=== PATIENT | male | born 1955 | race Caucasian/White ===

== ENCOUNTER 2021-11-01 16:09 | Outpatient (REF) | payer OTHER, SELFPAY ==
[2021-11-01 17:54] LABS: PSA,Total (Free>4and<10) 16.14 ng/mL (0.00-4.00)
== END 2021-11-01 16:10 | disposition home or self-care (01) ==
LOC: HO.LAB 16:09
PROVIDERS: Visit Provider Urology
DX: N40.1 Benign prostatic hyperplasia with lower urinary tract symptoms (principal); N13.8 Other obstructive and reflux uropathy; R97.20 Elevated prostate specific antigen [PSA]; E11.69 Type 2 diabetes mellitus with other specified complication; N52.1 Erectile dysfunction due to diseases classified elsewhere; Z12.5 Encounter for screening for malignant neoplasm of prostate
CPT/HCPCS: 36415; 84153; 99202

== ENCOUNTER 2022-03-18 09:48 | Outpatient (REF) | payer OTHER, SELFPAY ==
[2022-03-18 10:51] LABS: Blood Urea Nitrogen 14 mg/dL (9-16); Estimated Glomerular Filt Rate > 60
[2022-03-18 11:16] LABS: PSA,Total (Free>4and<10) 14.78 ng/mL (0.00-4.00)
== END 2022-03-18 09:49 | disposition home or self-care (01) ==
LOC: HO.LAB 09:48
PROVIDERS: Visit Provider Urology
DX: Z12.5 Encounter for screening for malignant neoplasm of prostate (principal); R39.15 Urgency of urination; R97.20 Elevated prostate specific antigen [PSA]; N13.8 Other obstructive and reflux uropathy; N40.1 Benign prostatic hyperplasia with lower urinary tract symptoms
CPT/HCPCS: 36415; 82565; 84153; 84520

== ENCOUNTER → 2022-03-21 13:25 | Outpatient (BNVA) | payer OTHER, SELFPAY | PROVIDERS: PCP Internal Medicine; Visit Provider Urology | DX: R97.20 Elevated prostate specific antigen [PSA] (principal); E11.69 Type 2 diabetes mellitus with other specified complication; N52.1 Erectile dysfunction due to diseases classified elsewhere; N40.1 Benign prostatic hyperplasia with lower urinary tract symptoms | CPT/HCPCS: 99212 ==

== ENCOUNTER 2022-09-20 09:54 | Outpatient (REF) | payer OTHER, SELFPAY ==
[2022-09-20 11:25] LABS: Prostate Specific Antigen 12.15 ng/mL (<0.05-4.0)
== END 2022-09-20 09:55 | disposition home or self-care (01) ==
LOC: HO.10HDL 09:54
PROVIDERS: Visit Provider Urology
DX: Z12.5 Encounter for screening for malignant neoplasm of prostate (principal); R97.20 Elevated prostate specific antigen [PSA]
CPT/HCPCS: 36415; 84153

== ENCOUNTER → 2022-09-27 13:45 | Outpatient (BNVA) | payer MEDICARE, MEDICAID, SELFPAY | PROVIDERS: PCP Internal Medicine; Visit Provider Urology | DX: N40.1 Benign prostatic hyperplasia with lower urinary tract symptoms (principal); N13.8 Other obstructive and reflux uropathy; R97.20 Elevated prostate specific antigen [PSA]; E11.69 Type 2 diabetes mellitus with other specified complication; N52.1 Erectile dysfunction due to diseases classified elsewhere | CPT/HCPCS: 51798; 99212 ==

== ENCOUNTER 2023-01-09 11:18 | Outpatient (AMB) | payer MEDICARE, MEDICAID, SELFPAY ==
--- NOTE | 2023-01-09 11:42 | A.OFFVIS_ITS ---
Intake Intake Visit Reasons: H&P (targeted bx to be scheduled) Intake Note: Patient is present for Follow Up H&P Target bx Urology Med: Tadalafil Antibiotic Allergy: None Blood Thinner: Aspirin Pharmacy: [facility] Allergies No Known Allergies Allergy (Verified 09/27/22 13:50) Medication List - Last Reconciled 01/09/23 by Brown Obando MD aspirin 81 mg PO DAILY atorvastatin 10 mg PO DAILY blood sugar diagnostic (FreeStyle Lite Strips) As directed escitalopram oxalate 10 mg PO DAILY gabapentin 0 mg PO lisinopril 5 mg PO DAILY metformin 1,000 mg PO BID metformin ER 500 mg PO QAM tadalafil 5 mg PO DAILY 90 days triamcinolone acetonide 2 sprays intranasal DAILY HPI HPI Comments History of Present Illness Details Bryan is a pleasant Citizen [place]-speaking male. He is a patient of Dr. Mayorga. He is seen for following urologic conditions - elevated PSA - erectile dysfunction - lower urinary tract symptoms Citizen [place] translation provided by qualified medical staffing coordinator Reports misdiagnosis at prior urologist - question of prostate cancer Persistently high PSA LEI 3+ prostate Discussed targeted biopsy He is traveling for 2 months Erectile dysfunction Longstanding - Background diabetes controlled on single agent Combination premature ejaculation Continue daily low-dose Cialis with good results Refill prescription Lower urinary tract symptoms Follow-up evaluation postvoid dribbling with incomplete emptying PSA 2020 9, 11/18 16, 03/21 15, 09/19 12 Prior negative biopsy 04/16, negative biopsy mid 2020 in [place] Lei 3+ prostate No family history prostate cancer Imaging - 02/18 MRI prostate central peripheral zone left side 1 cm lesion PI-RADS 4 Poor response to finasteride and previously Avodart - had pain PFSH Medical History Diabetes mellitus, type II GERD (gastroesophageal reflux disease) HTN (hypertension) Review of Systems Const Denies chills and Denies fever(s) Card Reports no additional complaints and Denies syncope Resp Denies cough GI Denies abdominal pain and Denies heartburn Reports as per HPI and Denies change in libido Neuro Denies syncope Psych Denies change in libido Endo Denies change in libido Physical Exam Const General: cooperative, healthy appearing, comfortable and no acute distress Orientation/consciousness: patient oriented x3 HEENT Face and sinus: Yes normal facial exam Mouth: moist mucous membranes Neck Neck: Yes normal visual inspection, Yes full ROM and Yes trachea midline Chest Chest palpation & inspection: normal inspection of the chest Resp Effort & Inspection: normal respiratory effort, able to speak in complete sentences and no respiratory distress GI Inspection: Yes normal to inspection Back/Spine/Pelvis Cervical Spine: normal cervical lordosis Thoracic/Lumbar Spine: thoracic and lumbar spine normal to inspection Skin General skin exam: no rashes or lesions noted Neuro General: patient oriented x3, gait normal, tone normal and moves all extremities Extrem General: Yes normal to inspection and Yes capillary refill normal Assessment & Plan Assessment & Plan (1) BPH loc w urin obs/LUTS: Code(s): N40.1 - Benign prostatic hyperplasia with lower urinary tract symptoms (2) Elevated PSA: Code(s): R97.20 - Elevated prostate specific antigen [PSA] (3) Erectile dysfunction associated with type 2 diabetes mellitus: Code(s): E11.69 - Type 2 diabetes mellitus with other specified complication; N52.1 - Erectile dysfunction due to diseases classified elsewhere Plan Risks, benefits and alternatives to therapy were discussed. These include but are not limited to infection, bleeding, damage to local organs and tissues, need for further interventions. Anesthetic risks regarding cardiac arrhythmia, blood clots, and potential mortality were discussed. The patient understands the typical recovery time and the outpatient nature of the procedure. After consideration of these risks the patient gives full informed consent and they wish to move ahead with the procedure. Prostate Fusion Biopsy Medications: Refilled tadalafil Take daily 5 mg PO DAILY 90 days 90 tabs 1RF sexual activity E11.69 - Type 2 diabetes mellitus with other specified complication, N52.1 - Erectile dysfunction due to diseases classified elsewhere Patient Instructions: Imaging studies, laboratory and physical exam results were discussed and reviewed in detail. No major barriers to patient understanding were identified. An opportunity to ask questions regarding the treatment plan was provided. All questions were answered. The patient expressed understanding and agreement with the above treatment plan. The patient is aware they should contact our office by phone for worsening of their current condition or the appearance of new urologic symptoms. Compliance is encouraged with any medications and followup testing that is ordered. It is a privilege to participate in the urologic care of your patient. If you have any questions or concerns regarding treatment for the above conditions, or other urologic issues, please do not hesitate to contact me. The office te zach contact is [phone]. This note is constructed using voice recognition software. While every effort has been made to ensure accuracy office secretary errors may have been included. Yours sincerely, Dr Brown Obando MD, [facility] - Urology Providers of Expert, Compassionate Care for the Genitourinary System Coding Level of Care Code Est Pt Level 4 (11402) Diagnoses BPH loc w urin obs/LUTS N40.1 Elevated PSA R97.20 Erectile dysfunction associated with type 2 diabetes mellitus E11.69; N52.1
== END 2023-01-09 12:07 | disposition home or self-care (01) ==
PROVIDERS: PCP Internal Medicine; Visit Provider Urology
DX: N40.1 Benign prostatic hyperplasia with lower urinary tract symptoms (principal); R97.20 Elevated prostate specific antigen [PSA]; E11.69 Type 2 diabetes mellitus with other specified complication; N52.1 Erectile dysfunction due to diseases classified elsewhere
CPT/HCPCS: 99214

== ENCOUNTER → 2023-01-09 11:18 | Outpatient (BNVA) | payer MEDICARE, MEDICAID, SELFPAY | PROVIDERS: PCP Internal Medicine; Visit Provider Urology | DX: R97.20 Elevated prostate specific antigen [PSA] (principal); N40.1 Benign prostatic hyperplasia with lower urinary tract symptoms; N13.8 Other obstructive and reflux uropathy; E11.69 Type 2 diabetes mellitus with other specified complication; N52.1 Erectile dysfunction due to diseases classified elsewhere | CPT/HCPCS: 99212 ==

== ENCOUNTER 2023-02-12 09:02 | Day surgery (SDC) | payer MEDICARE, MEDICAID, SELFPAY ==
[2023-02-08 08:10] VITALS: BMI 31.0
--- NOTE | 2023-02-08 12:17 | P.CONAN_ITS ---
Documented by User: Karli Bill NP 02/08/23 12:17 HPI - Anesthesia Eval Consult details Narrative: 67yo M for Targeted Prostate Needle Biopsy PMFSH Active Problems Active Problems: All Active Problems (Updated 02/08/23 @ 08:00 by Marilynn Shaw RN) Erectile dysfunction associated with type 2 diabetes mellitus (Acute) BPH loc w urin obs/LUTS (Acute) Elevated PSA (Acute) Past Medical History Medical History History of umbilical hernia Anxiety Mild cognitive impairment Vitamin D deficiency Back pain Osteophyte Hyperlipidemia Diabetes mellitus, type II GERD (gastroesophageal reflux disease) HTN (hypertension) Surgical History Surgical History History of nasal sinusotomy H/O colonoscopy Social History Social History Patient Tobacco Use Status: Never used Tobacco Use of substances other than those prescribed or required for medical reasons: No Are you DNR?: No Advance Directives: No Advance Directives Information Provided: Yes Meds Allergies Allergy/AdvReac Type Severity Reaction Status Date / Time No Known Allergies Allergy Verified 09/27/22 13:50 Home Medications Medication Instructions Recorded Confirmed Last Taken Type atorvastatin 10 mg tablet 10 mg PO DAILY 11/01/21 02/08/23 Unknown History blood sugar diagnostic (FreeStyle #10 ea 01/18/22 01/09/23 Unknown History Lite Strips) aspirin 81 mg tablet,delayed 81 mg PO DAILY 03/20/22 02/08/23 Unknown History release escitalopram oxalate 10 mg tablet 10 mg PO DAILY 03/20/22 02/08/23 Unknown History gabapentin 300 mg capsule 0 mg PO 03/20/22 01/09/23 Unknown History lisinopril 5 mg tablet 5 mg PO DAILY 03/20/22 02/08/23 02/12/23 History metformin 1,000 mg tablet 1,000 mg PO BID 03/20/22 02/08/23 Unknown History triamcinolone acetonide 55 mcg 2 spray intranasal DAILY 03/20/22 02/08/23 02/12/23 History nasal spray aerosol acetaminophen 500 mg capsule 500 mg PO Q6H PRN Pain 02/08/23 02/08/23 Unknown History diclofenac sodium 75 mg 75 mg PO BID 02/08/23 02/08/23 Unknown History tablet,delayed release fluticasone propionate 50 1 spray intranasal DAILY 02/08/23 02/08/23 Unknown His tory mcg/actuation nasal spray,suspension loratadine 10 mg tablet 10 mg PO DAILY 02/08/23 02/08/23 Unknown History omeprazole 40 mg capsule,delayed 40 mg PO DAILY 02/08/23 02/08/23 Unknown History release polyethylene glycol 3350 17 gram 17 g PO DAILY PRN Constipation 02/08/23 02/08/23 Unknown History oral powder packet Exam Exam Date and Time: February 08, 2023 1217 Height,Weight and Vital Signs: Height 5 ft 1 in Weight 74.389 kg Assessment and Plan Assessment Anesthesia Assessment: Chart Reviewed Documented by User: Chantelle Quiros MD 02/12/23 11:30 PMFSH Past Medical History Medical History History of umbilical hernia Anxiety Mild cognitive impairment Vitamin D deficiency Back pain Osteophyte Hyperlipidemia Diabetes mellitus, type II GERD (gastroesophageal reflux disease) HTN (hypertension) Family History Family history of problems with anesthesia: No Surgical History Surgical History History of nasal sinusotomy H/O colonoscopy History of Problems with Anesthesia: No Social History Social History Patient Tobacco Use Status: Never used Tobacco Use of substances other than those prescribed or required for medical reasons: No Are you DNR?: No Advance Directives: No Advance Directives Information Provided: Yes Meds Allergies Allergy/AdvReac Type Severity Reaction Status Date / Time No Known Allergies Allergy Verified 09/27/22 13:50 Home Medications Medication Instructions Recorded Confirmed Last Taken Type atorvastatin 10 mg tablet 10 mg PO DAILY 11/01/21 02/08/23 Unknown History blood sugar diagnostic (FreeStyle #10 ea 01/18/22 01/09/23 Unknown History Lite Strips) aspirin 81 mg tablet,delayed 81 mg PO DAILY 03/20/22 02/08/23 Unknown History release escitalopram oxalate 10 mg tablet 10 mg PO DAILY 03/20/22 02/08/23 Unknown History gabapentin 300 mg capsule 0 mg PO 03/20/22 01/09/23 Unknown History lisinopril 5 mg tablet 5 mg PO DAILY 03/20/22 02/08/23 02/12/23 History metformin 1,000 mg tablet 1,000 mg PO BID 03/20/22 02/08/23 Unknown History triamcinolone acetonide 55 mcg 2 spray intranasal DAILY 03/20/22 02/08/23 02/12/23 History nasal spray aerosol acetaminophen 500 mg capsule 500 mg PO Q6H PRN Pain 02/08/23 02/08/23 Unknown History diclofenac sodium 75 mg 75 mg PO BID 02/08/23 02/08/23 Unknown History tablet,delayed release fluticasone propionate 50 1 spray intranasal DAILY 02/08/23 02/08/23 Unknown History mcg/actuation nasal spray,suspension loratadine 10 mg tablet 10 mg PO DAILY 02/08/23 02/08/23 Unknown History omeprazole 40 mg capsule,delayed 40 mg PO DAILY 02/08/23 02/08/23 Unknown History release polyethylene glycol 3350 17 gram 17 g PO DAILY PRN Constipation 02/08/23 02/08/23 Unknown History oral powder packet Exam Airway Mallampati Class: II TM Dist: >3cm Neck ROM: Limited Partial: Upper and Lower Heart: rrr Lungs: cta Assessment and Plan Assessment Anesthesia Assessment: Anesthesia Plan Discussed Final Anesthetic Review Family History of Problems with Anesthesia: No History of Problems with Anesthesia: No NPO: Yes ASA Class: II Final Preanesthetic Review: No Changes in Pt Med Stat, Meds/Allgs Chart Reviewed, Consent Obtained/Reviewed and Anes Risks/Benef Reviewed Patient Risk: Low Procedure Risk: Low Anesthetic Plan Anesthetic Plan: GA Disposition: Standard PACU
[2023-02-12] MEDS: levoFLOXacin 500 MG TABLET PO (09:57)
[2023-02-12 10:00] VITALS: BP 159/84; PULSE 82; RESP 16; TEMP 37.1; O2SAT 95
[2023-02-12 10:17] LABS: Glucose, Whole Blood 154 mg/dL (60-115)
[2023-02-12] MEDS: Lactated Ringers 1,000 ML 100 ML IVCONT (10:21)
--- NOTE | 2023-02-12 10:32 | MHC.SHP ---
Pre-Procedural Eval Section A Date of Service: 02/12/23 The patient is an INPATIENT: No Changes since office visit: No Cold of Flu in the past 2 weeks, No New Medical Problems, No Changes in Medication and No Patient answered all questions The History & Physical has been completed within 30 days and I have reviewed it.: No Section B Chief Complaint: Elevated prostate specific antigen [PSA] Details of Present Illness: Fusion Biopsy Relevant Social History: None Present Medications: see Short Stay Collaborative assessment Medical History: No relevant PMH History of Previous Operations: Relevant previous surgery/procedure and date(s) Allergies: Allergies Allergy/AdvReac Type Severity Reaction Status Date / Time No Known Allergies Allergy Verified 09/27/22 13:50 Review of Systems Sugical H&P ROS: Negative: Constitution, Cardiovascular, Respiratory, Neurological, Psychiatric, Hem-Onc, Allergic/Immunologic, Gastrointestinal, Genitourinary, Musculoskeletal, Integumentary, Endocrine and Eyes/Ears/Nose/Throat Exam Surgical H&P Exam: Normal: HEENT, Normal: Heart, Normal: Lungs, Normal: Extremities, Normal: Abdomen, Normal: Skin and Normal: Neurological Plan Diagnosis/Plan: Unchanged (Fusion prostate biopsy) I have reviewed the history and physical and performed a pertinent physical examination on my patient. No changes have occurred unless specified. Time Spent With Patient Time: Total time managing care of this patient today ____ minutes.
--- NOTE | 2023-02-12 12:14 | W.PM.OPN ---
Operative Note Operative Note Date of Service: 02/12/23 Narrative: Preoperative diagnosis: Elevated PSA Postoperative diagnosis: Elevated PSA Procedure: 1. transrectal ultrasound measurement of prostate 2. transrectal ultrasound-guided pudendal nerve block 3. MRI-US fusion image registration performed 3. transperineal ultrasound-guided prostate biopsy 15 core including targets Surgeon: Dr. Brown Obando Anesthetic: Sedation plus local Indications for procedure: Elevated PSA Procedure: After informed consent was verified, the patient was brought into the procedure area. Patient identity confirmed. Perioperative antibiotics confirmed. Safety pause time out performed. Anesthesia performed per protocol Ultrasound probe was placed per rectum Focalis software and hardware platform used An ultrasound-guided pudendal nerve block was performed using 10 cc of 1% lidocaine. 8 cc was placed at the base and 2 cc of the apex. Perineal injection of local. Ultrasound placement was made with grid calibration for height and prostate diameter in both the transverse and longitudinal planes. Once grid calibration was confirmed ultrasound acquisition was performed in the transverse fashion. Three dimensional ultrasound model was created. The planned needle targeting based on prior acquisition of MRI imaging was overlaid on the ultrasound images and targets confirmed through ultrasound review. Based on pre -planning evaluation 15 targets had been identified. These included 2 targets - posterior left, anterior left PiRADs 4/3 identified lesion/s.. He tolerated the procedure well. Was transferred to stable condition in the PACU. Printed instructions regarding antibiotic use and common side effects such as low-grade temperature, potential infection and bleeding were given Pathology: 15 core prostate biopsy CPT 93847 Modifier 22 for complexity of planning and procedure execution
[2023-02-12 12:20] VITALS: BP 111/48; PULSE 81; RESP 12; TEMP 36.4; O2SAT 99
[2023-02-12 12:25] VITALS: BP 117/54; PULSE 82; RESP 16; O2SAT 100
[2023-02-12 12:30] VITALS: BP 111/55; PULSE 83; RESP 14; O2SAT 100
[2023-02-12 12:35] VITALS: BP 111/67; BP 115/72; PULSE 81; PULSE 85; RESP 16; RESP 18; TEMP 36.4; O2SAT 100; O2SAT 98
[2023-02-12 12:50] VITALS: BP 123/56; PULSE 74; RESP 18; TEMP 36.4; O2SAT 100
== END 2023-02-12 13:34 | disposition home or self-care (01) ==
PROVIDERS: PCP Nurse Practitioner; Visit Provider Urology
PROC: (CPT 55700; principal; 2023-02-12 11:00)
DX: C61 Malignant neoplasm of prostate (principal); R97.20 Elevated prostate specific antigen [PSA]; I10 Essential (primary) hypertension; E11.9 Type 2 diabetes mellitus without complications; K21.9 Gastro-esophageal reflux disease without esophagitis; Z79.82 Long term (current) use of aspirin; Z79.84 Long term (current) use of oral hypoglycemic drugs
CPT/HCPCS: 55706; 82947; 88305; J0131; J3010

== ENCOUNTER → 2023-02-12 09:02 | Outpatient (BNV) | payer MEDICARE, MEDICAID, SELFPAY | PROVIDERS: PCP Nurse Practitioner; Visit Provider Urology | DX: R97.20 Elevated prostate specific antigen [PSA] (principal) | CPT/HCPCS: 55700; 76942 ==

== ENCOUNTER 2023-02-28 13:38 | Outpatient (AMB) | payer MEDICARE, MEDICAID, SELFPAY ==
--- NOTE | 2023-02-28 13:40 | A.OFFVIS_ITS ---
Intake Intake Visit Reasons: Bx results Intake Note: Patient is Present for Telephone Follow Up Biopsy Urology Med: Tadalafil Antibiotic Allergy: None Blood Thinner: Aspirin Pharamcy: [facility] Allergies No Known Allergies Allergy (Verified 02/28/23 13:43) Medication List - Last Reconciled 02/28/23 by Brown Obando MD acetaminophen 500 mg PO Q6H PRN aspirin 81 mg PO DAILY atorvastatin 10 mg PO DAILY blood sugar diagnostic (FreeStyle Lite Strips) As directed diclofenac sodium 75 mg PO BID escitalopram oxalate 10 mg PO DAILY finasteride 5 mg PO DAILY 90 days fluticasone propionate 50 mcg/actuation 1 spray intranasal DAILY gabapentin 0 mg PO lisinopril 5 mg PO DAILY loratadine 10 mg PO DAILY metformin 1,000 mg PO BID omeprazole 40 mg PO DAILY polyethylene glycol 3350 17 grams PO DAILY PRN tadalafil 5 mg PO DAILY 90 days triamcinolone acetonide 2 sprays intranasal DAILY HPI HPI Comments History of Present Illness Details Bryan is a pleasant [place]-speaking male. He is a patient of Dr. Mayorga. He is seen for following urologic conditions - elevated PSA - erectile dysfunction - lower urinary tract symptoms Telemedicine Evaluation 15 min Consultation MtoV Mohit Video attempted [place] translation provided by qualified nuclear medical tech Reports misdiagnosis at prior urologist - question of prostate cancer Directed biopsy shows grade group 3 prostate cancer He is willing to trial finasteride Did discuss the unfavorable intermediate nature of the diagnosis Prostate Cancer - Grade Group 3, targeted areas Histologic type: Acinar adenocarcinoma Histologic grade: 4+3=7 Treynor score: 4+3=7 (B 100%, E 55%, F 35%, J 60% and K 45%) % of pattern 4: 60-70% Grade group: 3 Number cores positive: 5 Total number of cores: 16 Periprostatic fat inv.: Not identified, Seminal vesicle inv.: Not identified, Perineural inv.: Present, LVI: Not identified Imaging - 02/18 MRI prostate central peripheral zone left side 1 cm lesion PI- RADS 4 - 50gm prostate Erectile dysfunction Longstanding - Background diabetes controlled on single agent Combination premature ejaculation Continue daily low-dose Cialis with good results Refill prescription Lower urinary tract symptoms Follow-up evaluation postvoid dribbling with incomplete emptying PSA 2020 9, 11/18 16, 03/21 15, 09/19 12.2 Prior negative biopsy 04/16, negative biopsy mid 2020 in [place] Lei 3+ prostate No family history prostate cancer Imaging - 02/18 MRI prostate central peripheral zone left side 1 cm lesion PI-RADS 4 Poor response to finasteride and previously Avodart - had pain PFSH Medical History History of umbilical hernia Anxiety Mild cognitive impairment Vitamin D deficiency Back pain Osteophyte Hyperlipidemia Diabetes mellitus, type II GERD (gastroesophageal reflux disease) HTN (hypertension) Surgical History History of nasal sinusotomy H/O colonoscopy Social History Patient Tobacco Use Status: Never used Tobacco Review of Systems Const All systems reviewed & are unremarkable except as noted in HPI and below Reports no additional complaints Resp Reports no additional complaints GI Reports no additional complaints Reports as per HPI Musc Reports no additional complaints Physical Exam Telemedicine evaluation Appropriate responses Regular breathing rate and rhythm HEENT Head: Yes normal to inspection Ears: hearing grossly normal bilaterally Eyes General: appearance normal, both eyes and all related structures Neck Neck: Yes normal visual inspection Chest Chest palpation & inspection: normal inspection of the chest Resp Effort & Inspection: normal respiratory effort and able to speak in complete sentences Assessment & Plan Assessment & Plan (1) Prostate cancer: Code(s): C61 - Malignant neoplasm of prostate Plan Three month follow-up PSA He will call Medications: New finasteride 5 mg PO DAILY 90 tabs 1RF 90 days N40.1 - Benign prostatic hyperplasia with lower urinary tract symptoms, N13.8 - Other obstructive and reflux uropathy, R33.9 - Retention of urine, unspecified Patient Instructions: Imaging studies, laboratory and physical exam results were discussed and reviewed in detail. No major barriers to patient understanding were identified. An opportunity to ask questions regarding the treatment plan was provided. All questions were answered. The patient expressed understanding and agreement with the above treatment plan. The patient is aware they should contact our office by phone for worsening of their current condition or the appearance of new urologic symptoms. Compliance is encouraged with any medications and followup testing that is ordered. It is a privilege to participate in the urologic care of your patient. If you have any questions or concerns regarding treatment for the above conditions, or other urologic issues, please do not hesitate to contact me. The office telephone contact is [phone]. This note is constructed using voice recognition software. While every effort has been made to ensure accuracy zigzag stitcher errors may have been included. Yours sincerely, Dr Brown Obando MD, [facility] - Urology Providers of Expert, Compassionate Care for the Genitourinary System Telehealth Telehealth Location of provider rendering services: practice address Location of patient: address on file Patient Identification confirmed using: Name, : Yes Telehealth method: voice only Patient verbally consented to treatment: Yes Patient verbally consented to billing insurance company: Yes Patient informed of any privacy concerns related to visit: Yes Coding Level of Care Code Tele Est Pt Level 4 (20368) Diagnoses Prostate cancer C61
== END 2023-02-28 16:00 | disposition home or self-care (01) ==
LOC: HO.HUSH 13:38
PROVIDERS: PCP Nurse Practitioner; Visit Provider Urology
DX: C61 Malignant neoplasm of prostate (principal)
CPT/HCPCS: 99442

== ENCOUNTER → 2023-02-28 13:38 | Outpatient (BNVA) | payer MEDICARE, MEDICAID, SELFPAY | PROVIDERS: PCP Nurse Practitioner; Visit Provider Urology ==

== ENCOUNTER 2024-04-02 09:27 | Outpatient (REF) | payer MEDICARE, MEDICAID, SELFPAY ==
[2024-04-02 11:36] LABS: Prostate Specific Antigen < 0.10 ng/mL (<0.05-4.0)
[2024-04-06 16:39] LABS: Testosterone, Total 7 ng/dL (250-1100)
== END 2024-04-02 09:28 | disposition home or self-care (01) ==
LOC: HO.LAB 09:27
PROVIDERS: PCP Nurse Practitioner; Visit Provider Urology
DX: C61 Malignant neoplasm of prostate (principal); Z12.5 Encounter for screening for malignant neoplasm of prostate
CPT/HCPCS: 36415; 84153; 84403

== ENCOUNTER 2024-05-09 09:07 | Outpatient (AMB) | payer MEDICARE, MEDICAID, SELFPAY ==
--- NOTE | 2024-05-09 09:07 | MHC.OFFVIS ---
Intake Visit Reasons: PSA/Med Review(set)Finasteride Intake Note: Pt presents to the office today as a telehealth for a PSA/Med review Allergies No Known Allergies Allergy (Verified 05/09/24 09:08) HPI Comments Details: Bryan is a pleasant Georgian-speaking male. He is a patient of Dr. Mayorga. He is seen for following urologic conditions - elevated PSA - erectile dysfunction - lower urinary tract symptoms Telemedicine Evaluation 15 min Consultation [employer] [facility] Video attempted Georgian translation provided by qualified medical billing supervisor Reports misdiagnosis at prior urologist - question of prostate cancer Directed biopsy shows grade group 3 prostate cancer Has undergone prostate cancer treatment in [place] Had EXBRT with GnRH 11/20 Last GnRH 02/20 PSA 04/22 <0.1 T 7 Has urgency and frequency and given terazosin Requesting tadalafil Prostate Cancer - Grade Group 3, targeted areas 03/22 Histologic type: Acinar adenocarcinoma Histologic grade: 4+3=7 Patricia score: 4+3=7 (B 100%, E 55%, F 35%, J 60% and K 45%) % of pattern 4: 60-70% Grade group: 3 Number cores positive: 5 Total number of cores: 16 Periprostatic fat inv.: Not identified, Seminal vesicle inv.: Not identified, Perineural inv.: Present, LVI: Not identified Imaging - 02/18 MRI prostate central peripheral zone left side 1 cm lesion PI-RADS 4 - 50gm prostate Erectile dysfunction Longstanding - Background diabetes controlled on single agent Combination premature ejaculation Continue daily low-dose Cialis with good results Refill prescription Lower urinary tract symptoms Follow-up evaluation postvoid dribbling with incomplete emptying PSA 2020 9, 11/18 16, 03/21 15, 09/19 12.2 Prior negative biopsy 04/16, negative biopsy mid 2020 in [place] Lei 3+ prostate No family history prostate cancer Imaging - 02/18 MRI prostate central peripheral zone left side 1 cm lesion PI-RADS 4 Poor response to finasteride and previously Avodart - had pain PFSH Medical History History of umbilical hernia Anxiety Mild cognitive impairment Vitamin D deficiency Back pain Osteophyte Hyperlipidemia Diabetes mellitus, type II GERD (gastroesophageal reflux disease) HTN (hypertension) Surgical History History of nasal sinusotomy H/O colonoscopy Social History Patient Tobacco Use Status: Never used Tobacco Review of Systems Const All systems reviewed & are unremarkable except as noted in HPI and below Reports no additional complaints Resp Reports no additional complaints GI Reports no additional complaints Reports as per HPI Musc Reports no additional complaints Physical Exam Telemedicine evaluation Appropriate responses Regular breathing rate and rhythm HEENT Head: Yes normal to inspection Ears: hearing grossly normal bilaterally Eyes General: appearance normal, both eyes and all related structures Neck Neck: Yes normal visual inspection Chest Chest palpation & inspection: normal inspection of the chest Resp Effort & Inspection: normal respiratory effort and able to speak in complete sentences Telehealth Telehealth Telehealth Platform: [employer] Location of provider rendering services: practice address Location of patient: address on file Patient Identification confirmed using: Name, : Yes Telehealth method: video Patient verbally consented to treatment: Yes Patient verbally consented to billing insurance company: Yes Patient informed of any privacy concerns related to visit: Yes Minutes spent on Phone/Video with Pt.: 15 Assessment & Plan Assessment & Plan (1) Prostate cancer: Code(s): C61 - Malignant neoplasm of prostate Category: Medical (2) Erectile dysfunction associated with type 2 diabetes mellitus: Code(s): E11.69 - Type 2 diabetes mellitus with other specified complication; N52.1 - Erectile dysfunction due to diseases classified elsewhere Category: Medical Plan Add terazosin for frequency and urgency Refill tadalafil Orders: Orders Testosterone, Total 6 Months C61 - Malignant neoplasm of prostate Prostate Specific Antigen 6 Months C61 - Malignant neoplasm of prostate Medications: New terazosin 5 mg PO BEDTIME 90 days 90 caps 1RF N40.1 - Benign prostatic hyperplasia with lower urinary tract symptoms, R35.0 - Frequency of micturition Patient Instructions: Imaging studies, laboratory and physical exam results were discussed and reviewed in detail. No major barriers to patient understanding were identified. An opportunity to ask questions regarding the treatment plan was provided. All questions were answered. The patient expressed understanding and agreement with the above treatment plan. The patient is aware they should contact our office by phone for worsening of their current condition or the appearance of new urologic symptoms. Compliance is encouraged with any medications and followup testing that is ordered. It is a privilege to participate in the urologic care of your patient. If you have any questions or concerns regarding treatment for the above conditions, or other urologic issues, please do not hesitate to contact me. The office telephone contact is [phone]. This note is constructed using voice recognition software. While every effort has been made to ensure accuracy systems planner errors may have been included. Yours sincerely, Dr Brown Obando MD, [facility] Providers of Expert, Compassionate Care for the Genitourinary System Coding Level of Care Code Tele Est Pt Level 4 (17769) Diagnoses Prostate cancer C61 Erectile dysfunction associated with type 2 diabetes mellitus E11.69; N52.1
== END 2024-05-09 09:46 | disposition home or self-care (01) ==
LOC: HO.HUSH 09:07
PROVIDERS: PCP Nurse Practitioner; Visit Provider Urology
DX: C61 Malignant neoplasm of prostate (principal); E11.69 Type 2 diabetes mellitus with other specified complication; N52.1 Erectile dysfunction due to diseases classified elsewhere
CPT/HCPCS: 99214